=== PATIENT | male | born 2005 | race Caucasian/White ===

== ENCOUNTER 2023-12-19 09:20 | Emergency (ER) | payer OTHER ==
[~2023-12-19] VITALS: Ht 167.6 cm; Wt 64.0 kg
[2023-12-19 09:28] VITALS: BP 126/70; PULSE 96; RESP 16; O2SAT 98
[2023-12-19 11:17] VITALS: TEMP 98.4
[2023-12-19] MEDS: ACETAMINOPHEN 325MG TABLET PO ONE (11:17)
== END 2023-12-19 11:28 ==
LOC: EDBD 09:20 → ER 09:20
DX: S93.401A Sprain of unspecified ligament of right ankle, initial encounter (principal); Y04.0XXA Assault by unarmed brawl or fight, initial encounter; Y93.89 Activity, other specified; Y92.89 Other specified places as the place of occurrence of the external cause; Y99.8 Other external cause status
CPT/HCPCS: 73610; 99283